=== PATIENT | male | born 1965 | race Caucasian/White ===

== ENCOUNTER 2020-05-13 00:48 | Inpatient (IN) | payer OTHER ==
[~2020-05-13] VITALS: Ht 172 cm; Wt 66.5 kg
[2020-05-13] MEDS ORDERED: NITROGLYCERIN 0.4 MG SL TABS BTL 25'S SL ONE (00:51)
[2020-05-13] MEDS ORDERED: ASPIRIN 81 MG CHEW (CHILDREN'S ASA) ONE (00:51)
[2020-05-13] MEDS ORDERED: morphine INJ 10 MG/ML 1ML (SYR OR VIAL) ONE (00:55)
[2020-05-13] MEDS ORDERED: NS IV 500 ML 500 ML ONE (00:55)
[2020-05-13] MEDS ORDERED: HEParin 1000 UNIT/ML (10ML VIAL) FOR BOLUS ONE ×2 (00:55→01:28)
[2020-05-13] MEDS ORDERED: TICAGRELOR 90 MG TABLET (BRILINTA) PO STA (00:57)
[2020-05-13] MEDS ORDERED: NITROGLYCERIN 0.4 MG SL TABS BTL 25'S SL PRN (01:00)
[2020-05-13] MEDS ORDERED: HEParin 1000 UNIT/ML (10ML VIAL) FOR BOLUS IV SCH (01:00)
[2020-05-13] MEDS ORDERED: ASPIRIN 81 MG CHEW (CHILDREN'S ASA) PO ONE (01:00)
[2020-05-13] MEDS ORDERED: morphine INJ 10 MG/ML 1ML (SYR OR VIAL) IVP STA ×2 (01:01→01:21)
--- NOTE | 2020-05-13 01:05 | ED Chest Pain ---
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 DENIES NAUSEA. Nursing Sepsis Screen: No Definite Risk Source: patient Exam Limitations: no limitations History of Present Illness Date Seen by Provider: May 13, 2020 Time Seen by Provider: 00:50 Initial Comments The patient arrives ER by private conveyance from home with chief complaint of 30 minutes prior to arrival he started having some severe 8 out of 10 chest pain in his left chest radiating to his left arm. He is sweating. He denies a history of coronary disease, hypertension, hyperlipidemia, diabetes. He still smokes 1- 1/2 pack cigarettes per day. He is known to Dr. Girard. He took some ibuprofen when the pain started and it did not help. He has not taken any aspirin. No significant primary family history. Allergies and Home Medications Allergies Coded Allergies: No Known Drug Allergies (Unverified , 05/13/20) Patient Home Medication List Home Medication List Reviewed: Yes Review of Systems Review of Systems Constitutional: No chills; diaphoresis; No fever, No malaise EENTM: No Blurred Vision, No Double Vision Respiratory: Denies Cough, Denies Orthopnea Cardiovascular: See HPI, Chest Pain; Denies Edema, Denies Irregular Heart Rate, Denies Lightheadedness Gastrointestinal: Denies Abdominal Pain, Denies Constipated, Denies Diarrhea, Denies Nausea Genitourinary: Denies Burning, Denies Discharge Musculoskeletal: No back pain, No joint pain All Other Systems Reviewed Negative Unless Noted: Yes Past Pntljgh-Pdelvl-Zavwnf Hx Patient Social History Alcohol Use: Denies Use Smoking Status: Current Everyday Smoker Type Used: Cigarettes Recent Infectious Disease Expo: No Physical Exam Vital Signs Vital Signs - First Documented 05/13/20 00:52 Temp 36.9 Pulse 70 Resp 16 B/P (MAP) 126/93 (104) O2 Delivery Room Air Capillary Refill : Less Than 3 Seconds Height, Weight, BMI Height: '" Weight: lbs. oz. kg; 22.00 BMI Method: General Appearance: Anxious, Moderate Distress HEENT: PERRL/EOMI, Pharynx Normal, Moist Mucous Membranes Neck: Full Range of Motion, Normal Inspection Respiratory: Lungs Clear, Normal Breath Sounds, No Accessory Muscle Use, No Respiratory Distress Cardiovascular: Regular Rate, Rhythm, No Edema, No Gallop, No Murmur, Normal Peripheral Pulses Gastrointestinal: Normal Bowel Sounds, Non Tender, Soft Extremity: Normal Capillary Refill, Normal Inspection, No Pedal Edema Neurologic/Psychiatric: Alert, Oriented x3 Skin: Normal Color, Warm/Dry Progress/Results/Core Measures Results/Orders Lab Results Laboratory Tests Test 05/13/20 01:04 Range/Units White Blood Count 16.0 H 4.3-11.0 10^3/uL Red Blood Count 4.77 4.30-5.52 10^6/uL Hemoglobin 14.7 13.3-17.7 g/dL Hematocrit 44 40-54 % Mean Corpuscular Volume 93 80-99 fL Mean Corpuscular Hemoglobin 31 25-34 pg Mean Corpuscular Hemoglobin Concent 33 32-36 g/dL Red Cell Distribution Width 14.0 10.0-14.5 % Platelet Count 222 130-400 10^3/uL Mean Platelet Volume 10.9 9.0-12.2 fL Immature Granulocyte % (Auto) 0 % Neutrophils (%) (Auto) 51 42-75 % Lymphocytes (%) (Auto) 38 12-44 % Monocytes (%) (Auto) 7 0-12 % Eosinophils (%) (Auto) 4 0-10 % Basophils (%) (Auto) 1 0-10 % Neutrophils # (Auto) 8.1 H 1.8-7.8 10^3/uL Lymphocytes # (Auto) 6.0 H 1.0-4.0 10^3/uL Monocytes # (Auto) 1.1 H 0.0-1.0 10^3/uL Eosinophils # (Auto) 0.6 H 0.0-0.3 10^3/uL Basophils # (Auto) 0.1 0.0-0.1 10^3/uL Immature Granulocyte # (Auto) 0.1 0.0-0.1 10^3/uL Prothrombin Time 13.2 12.2-14.7 SEC INR Comment 1.0 0.8-1.4 Activated Partial Thromboplast Time 33 24-35 SEC Sodium Level 140 135-145 MMOL/L Potassium Level 4.0 3.6-5.0 MMOL/L Chloride Level 108 H 98-107 MMOL/L Carbon Dioxide Level 19 L 21-32 MMOL/L Anion Gap 13 5-14 MMOL/L Blood Urea Nitrogen 21 H 7-18 MG/DL Creatinine 0.91 0.60-1.30 MG/DL Estimat Glomerular Filtration Rate > 60 BUN/Creatinine Ratio 23 Glucose Level 114 H 70-105 MG/DL Calcium Level 9.3 8.5-10.1 MG/DL Corrected Calcium 9.2 8.5-10.1 MG/DL Magnesium Level 2.0 1.6-2.4 MG/DL Total Bilirubin 0.2 0.1-1.0 MG/DL Aspartate Amino Transf (AST/SGOT) 21 5-34 U/L Alanine Aminotransferase (ALT/SGPT) 20 0-55 U/L Alkaline Phosphatase 80 40-136 U/L Myoglobin 55.8 10.0-92.0 NG/ML Troponin I 0.039 H <0.028 NG/ML Total Protein 7.3 6.4-8.2 GM/DL Albumin 4.1 3.2-4.5 GM/DL My Orders Orders - NICK NEVAREZ Continuous Ekg Monitoring (05/13/20 00:50) Ekg Tracing (05/13/20 00:50) Aspirin Chewable Tablet (Baby Aspirin Ch (05/13/20 00:51) Nitroglycerin 0.4 Mg Btl 25's (Nitrostat (05/13/20 00:51) Cbc With Automated Diff (05/13/20 00:57) Magnesium (05/13/20 00:57) Chest 1 View, Ap/Pa Only (05/13/20 00:57) Comprehensive Metabolic Panel (05/13/20 00:57) Myoglobin Serum (05/13/20 00:57) Protime With Inr (05/13/20 00:57) Partial Thromboplastin Time (05/13/20 00:57) O2 (05/13/20 00:57) Lipid Panel (05/14/20 06:00) Ed Iv/Invasive Line Start (05/13/20 00:57) Nitroglycerin 0.4 Mg Btl 25's (Nitrostat (05/13/20 01:00) Ticagrelor Tablet (Brilinta Tablet) (05/13/20 00:57) Aspirin Chewable Tablet (Baby Aspirin Ch (05/13/20 01:00) Heparin (Bolus Per Protocol) (Heparin (B (05/13/20 01:00) Ed Iv/Invasive Line Start (05/13/20 01:01) Ns Iv 500 Ml (Sodium Chloride 0.9%) (05/13/20 01:15) Morphine Injection (Morphine Injection (05/13/20 01:01) Heparin (Bolus Per Protocol) (Heparin (B (05/13/20 00:55) Morphine Injection (Morphine Injection (05/13/20 00:55) Ns Iv 500 Ml (Sodium Chloride 0.9%) (05/13/20 00:55) Troponin I (05/13/20 00:57) Manual Differential (05/13/20 01:04) Medications Given in ED Current Medications Medications Dose Ordered Sig/Jovana Route Start Time Stop Time Status Last Admin Dose Admin Aspirin 324 mg ONCE ONCE PO 05/13/20 01:00 05/13/20 01:02 DC 05/13/20 01:12 324 MG Vital Signs/I&O 05/13/20 00:52 Temp 36.9 Pulse 70 Resp 16 B/P (MAP) 126/93 (104) O2 Delivery Room Air Blood Pressure Mean: 104 Progress Progress Note : Time: 01:02 Progress Note Aspirin, Brilinta, 4000 units heparin IV and 500 of saline. Instead of nitroglycerin since his initial blood pressure is 120 systolic were going to give him 2 mg of morphine. We have called Dr. 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 Initial ECG Impression Date: May 13, 2020 Initial ECG Impression Time: 00:54 Initial ECG Rate: 65 Initial ECG Rhythm: Normal Sinus Initial ECG Intervals: Normal Initial ECG Impression: Acute OR Comment Acute ST elevation greater than 2 boxes in the anterior leads. Diagnostic Imaging Diagonstic Imaging: Xray Plain Films/CT/US/NM/MRI: chest Comments No acute cardiopulmonary processes on 1 view chest x-ray Reviewed: Reviewed by Me Departure Communication (Admissions) Time/Spoke to Admitting Phy: 00:55 Discussed the case with Dr. Rojas, cardiology and he agrees to take the patient to [employer] [facility]. Time/Spoke to Consulting Phy: 01:50 Dr. Melton agrees to consult for medicine on the case. Impression Primary Impression: STEMI (ST elevation myocardial infarction) Qualified Codes: I21.3 - ST elevation (STEMI) myocardial infarction of unspecified site Disposition: ADMITTED INPATIENT Condition: Critical Admissions Decision to Admit Reason: Admit from ER (General) Decision to Admit/Date: May 13, 2020 Time/Decision to Admit Time: 00:55 Departure-Patient Inst. Referrals: MACIEL GIRARD DO (PCP) Primary Care Physician NICK NEVAREZ May 13, 2020 01:05
[2020-05-13 01:12] LABS: BASOPHILS # (AUTO) 0.1 10^3/uL (0.0-0.1); BASOPHILS % (AUTO) 1 % (0-10); EOSINOPHILS # (AUTO) 0.6 10^3/uL (0.0-0.3); EOSINOPHILS % (AUTO) 4 % (0-10); HEMATOCRIT 44 % (40-54); HEMOGLOBIN 14.7 g/dL (13.3-17.7); LYMPHOCYTES % (AUTO) 38 % (12-44); MEAN CORPUSCULAR HEMOGLOBIN 31 pg (25-34); MEAN CORPUSCULAR HGB CONC 33 g/dL (32-36); MEAN CORPUSCULAR VOLUME 93 fL (80-99); MEAN PLATELET VOLUME 10.9 fL (9.0-12.2); MONOCYTES # (AUTO) 1.1 10^3/uL (0.0-1.0); MONOCYTES % (AUTO) 7 % (0-12); NEUTROPHILS # (AUTO) 8.1 10^3/uL (1.8-7.8); NEUTROPHILS % (AUTO) 51 % (42-75); PLATELET COUNT 222 10^3/uL (130-400)
[2020-05-13] MEDS ORDERED: NS IV 500 ML 500 ML IV ONE (01:15)
[2020-05-13 01:26] LABS: ALBUMIN 4.1 GM/DL (3.2-4.5); CHLORIDE 108 MMOL/L (98-107); PROTHROMBIN TIME PATIENT 13.2 SEC (12.2-14.7); SODIUM 140 MMOL/L (135-145)
[2020-05-13 01:27] LABS: CALCIUM 9.3 MG/DL (8.5-10.1)
[2020-05-13] MEDS ORDERED: MIDAZOLAM 5 MG/5 ML (VERSED) VIAL ONE ×2 (01:27→01:35)
[2020-05-13] MEDS ORDERED: LIDOCAINE 1% INJ 20 ML 20 ML VIAL ONE (01:27)
[2020-05-13] MEDS ORDERED: ATROPINE INJECTION 1 MG/10 ML SYR (ABBOTT) ONE (01:27)
[2020-05-13] MEDS ORDERED: fentaNYL INJ 100 MCG/2 ML AMP ONE ×2 (01:27→01:35)
[2020-05-13 01:28] LABS: GLUCOSE 114 MG/DL (70-105); TOTAL PROTEIN 7.3 GM/DL (6.4-8.2)
[2020-05-13] MEDS ORDERED: NITRO DRIP 25000 MCG/D5W 250 ML IV ONE ×2 (01:28→01:45)
[2020-05-13] MEDS ORDERED: NS IV 1000 ML 1,000 ML ONE ×2 (01:28→02:31)
[2020-05-13] MEDS ORDERED: HEParin (CATH LAB) 2,000 ML IV ONE (01:28)
[2020-05-13 01:29] LABS: CARBON DIOXIDE 19 MMOL/L (21-32)
[2020-05-13 01:30] LABS: BILIRUBIN,TOTAL 0.2 MG/DL (0.1-1.0)
[2020-05-13 01:32] LABS: ALKALINE PHOSPHATASE 80 U/L (40-136); CREATININE SERUM 0.91 MG/DL (0.60-1.30); GFR ESTIMATED > 60
[2020-05-13 01:33] LABS: BUN/CREATININE RATIO 23
[2020-05-13 01:35] LABS: ALANINE AMINOTRANSFERASE 20 U/L (0-55)
[2020-05-13 01:42] VITALS: BP 124/101
[2020-05-13] MEDS ORDERED: NS (IVPB) 0 ML ONE (02:07)
[2020-05-13] MEDS ORDERED: niCARdipine 25 MG/10 ML (CARDENE) AMP IV ONE (02:07)
[2020-05-13] MEDS ORDERED: EPTIFIBATIDE DRIP 100 ML IV ONE (02:13)
--- NOTE | 2020-05-13 02:29 | History & Physicial-Cardiolgy ---
HPI-Cardiology Cardiology Consultation: Date of Consultation 05/13/20 Date of Admission Attending Physician Dinorah Flaherty MD Admitting Physician Hayden Peña DO Consulting Physician Dinorah FLAHERTY MD HPI: Time Seen by a Provider: 02:27 Chief Complaint: Chest pain 55 year old smoker with chest pain x 30 minutes with nausea and sweating. severe, 10/10. no radiation. Review of Systems-Cardiology Review of Systems Constitutional: As described under HPI; No As described under HPI, No no symptoms reported, No chills, No fever, No lightheadedness Eyes: No As described under HPI, No no symptoms reported, No blindness, No blurred vision, No contact lenses, No drainage, No decreased acuity, No foreign body sensation, No pain, No vision change Ears/Nose/Throat: No As described under HPI, No no symptoms reported, No chronic hearing loss, No ear discharge, No ear pain, No nasal drainage, No ulcerations Respiratory: No no symptoms reported; As described under HPI; No As described under HPI, No cough, No orthopnea, No shortness of breath, No SOB with excertion Cardiovascular: No no symptoms reported; As described under HPI; No As described under HPI; chest pain; No edema, No irregular heart rate, No lightheadedness, No palpitations Gastrointestinal: No no symptoms reported, No As described under HPI, No abdomen distended, No abdominal pain, No blood streaked bowels, No constipation, No diarrhea, No nausea, No vomiting, No stool coloration changes Genitourinary: No As described under HPI, No burning, No dysuria, No discharge, No frequency, No flank pain, No hematuria, No urgency Skin: No rash, No skin related problems, No ulcerations Psychiatric/Neurological: No anxiety, No depression, No seizure, No focal weakness, No syncope Hematologic: No bleeding abnormalities All Other Systems Reviewed Negative Unless Noted: Yes YKF-Hremac-Zhvuli Hx Patient Social History Smoking Status: Current Everyday Smoker Past Medical History PMH As described under Assessment. Allergies and Home Medications Allergies Coded Allergies: No Known Drug Allergies (Unverified , 05/13/20) Patient Home Medication List Home Medication List Reviewed: Yes Physical Exam-Cardiology Physical Exam Vital Signs/I&O 05/13/20 05/13/20 05/13/20 00:52 01:33 01:42 Temp 36.9 36.9 Pulse 70 64 Resp 16 16 B/P (MAP) 126/93 (104) 124/101 (104) Pulse Ox 100 O2 Delivery Room Air Nasal Cannula Nasal Cannula O2 Flow Rate 2.00 2.00 Capillary Refill : Less Than 3 Seconds Constitutional: appears stated age, AAO x 3; No apparent distress; well- developed, well-nourished HEENT: PERRL; No discharge; hearing is well preserved, oral hygience is good; No ulceration, No xanthelasmas are seen Neck: No carotid bruit; carotid pulses are 2 + bilaterally Respiratory: chest is bilaterally symmetric, lungs clear to auscultation Cardiovascular: regular rate-rhythm, S1 and S2 Gastrointestinal: soft, audible bowel sounds; No spleenomegaly Rectal: deferred Extremities: normal range of motion, non-tender, normal inspection; No clubbing, No cyanosis; no lower extremity edema bilateral; No significant edema Neurologic/Psychiatric: no motor/sensory deficits, alert, normal mood/affect, oriented x 3, power is 5/5 both on sides Skin: normal color; No rash, No ulcerations Data Review Labs Laboratory Tests 05/13/20 01:04: White Blood Count 16.0H, Red Blood Count 4.77, Hemoglobin 14.7, Hematocrit 44, Mean Corpuscular Volume 93, Mean Corpuscular Hemoglobin 31, Mean Corpuscular Hemoglobin Concent 33, Red Cell Distribution Width 14.0, Platelet Count 222, Mean Platelet Volume 10.9, Immature Granulocyte % (Auto) 0, Neutrophils (%) (Auto) 51, Lymphocytes (%) (Auto) 38, Monocytes (%) (Auto) 7, Eosinophils (%) (Auto) 4, Basophils (%) (Auto) 1, Neutrophils # (Auto) 8.1H, Lymphocytes # (Auto) 6.0H, Monocytes # (Auto) 1.1H, Eosinophils # (Auto) 0.6H, Basophils # (Auto) 0.1, Immature Granulocyte # (Auto) 0.1, Prothrombin Time 13.2, INR Comment 1.0, Activated Partial Thromboplast Time 33, Sodium Level 140, Potassium Level 4.0, Chloride Level 108H, Carbon Dioxide Level 19L, Anion Gap 13, Blood Urea Nitrogen 21H, Creatinine 0.91, Estimat Glomerular Filtration Rate > 60, BUN/Creatinine Ratio 23, Glucose Level 114H, Calcium Level 9.3, Corrected Calcium 9.2, Magnesium Level 2.0, Total Bilirubin 0.2, Aspartate Amino Transf (AST/SGOT) 21, Alanine Aminotransferase (ALT/SGPT) 20, Alkaline Phosphatase 80, Myoglobin 55.8, Troponin I 0.039H, Total Protein 7.3, Albumin 4.1 05/13/20 01:26: Coronavirus 2019 ([facility]) Negative ECG Impression ECG Initial ECG Rhythm: Normal Sinus Initial ECG Impression: Acute NV A/P-Cardiology Assessment/Admission Diagnosis Acute Anterior STEMI, Active smoking Admission Status: Inpatient Order (span 2 midnights) Reason for Inpatient Admission: NV Plan AMI - DAPT, heparin, primary PCI to the LAD with MISHA. Integrillin x 12 hours. Echo in am. Active smoking - strongly recommended to quit. Clinical Quality Measures AMI/AHF: ASA po Prior to arrival: Dinorah Hein MD May 13, 2020 02:29
[2020-05-13] MEDS ORDERED: PATIENT MAY USE OWN MEDS, ALL PO SCH (02:30)
--- NOTE | 2020-05-13 02:37 | Coronary Angiography & PCI ---
Coronary Angiography & PCI DATE OF PROCEDURE: 05/13/20 INDICATION: Acute Anterior STEMI PREOPERATIVE DIAGNOSIS: Acute Anterior STEMI POSTOPERATIVE DIAGNOSIS: Occluded pLAD, MISHA done HISTORY: 55 year old smoker with chest pain and anterior ST elevation injury pattern. Emergent Primary PCI is recommended. PROCEDURES PERFORMED: 1.Coronary angiography. 2.Left heart catheterization. 3.PCI to the pLAD with MISHA COMPLICATIONS: None. SPECIMENS: None. ESTIMATED BLOOD LOSS: 10 mL ANESTHESIA: Conscious sedation ANTICOAGULATION: IV heparin CONTRAST: 106 ml FLUOROSCOPY: 5.7 minutes. FLOUROSCOPY DOSE: 678 mgy. PROCEDURE DETAILS: The patient is a 55 male and was brought to the cath lab technologist after emergent informed consent was taken. All the risks and complications were explained in detail; this included the risk of bleeding, vascular damage, stroke, [place] and even . The patient was draped and prepped in the usual sterile fashion. Access was gained in the right femoral artery with a 6 [place] sheath. Coronary angiography and left heart catheterization was performed with the EBU, JR 4 catheter. FINDINGS: 1.Left main: Patent 2.LAD: total proximal occlusion. 3.Left circumflex artery: mild diffuse disease. 4.RCA: patent 5.Left heart catheterization: LV 108/14mmhg, LVEDP 26mmhg, Ao pressure 110/75mmhg. No gradient across the aortic valve. Moderate LV systolic d ysfunction with anterior akinesis. RECOMMENDATIONS: Primary PCI to the pLAD is recommended. INTERVENTION DETAILS: EBU 3.5 guide, changed to EBU 4 guide, IV heparin for anticoagulation, whisper guidewire. Patient was given brilinta bolus in the ER. The lesion was crossed with the whisper wire and initial balloon dilatation done with 2.0x12 balloon and recanalization done. significant clot burden noted which involved the second diagonal artery as well. Xience Radha 3x23 deployed at 18 atms for 13 seconds. Excellent results with LOLY III flow. plaque shift in the first septal stable hand noted. Due to significant clot burden, Integrillin bolus and infusion was started. Patient tolerated the procedure well and did not have any complication. CONCLUSIONS: 1. Acute Anterior STEMI - primary pci to the pLAD done with MISHA. 2. DAPT, IV integrillin. 3. Aggressive secondary prevention measures. 4. Smoking cessation. 5. Echo in am M. Arcadio Rojas MD, FACP, FACC, FSCAI Interventional Cardiology Dinorah ROJAS MD May 13, 2020 02:37
[2020-05-13] MEDS: NS IV 1000 ML 1,000 ML IV SCH ×2 (03:04→12:54)
[2020-05-13] MEDS ORDERED: HYDROcodone/APAP 5 MG/325 MG (LORTAB) TAB ONE (03:30)
[2020-05-13] MEDS: HYDROcodone/APAP 5 MG/325 MG (LORTAB) TAB PO PRN ×2 (03:38→22:17)
[2020-05-13 03:51] LABS: BASOPHILS % (MANUAL) 1 %; EOSINOPHILS % (MANUAL) 5 %; LYMPHOCYTES % (MANUAL) 38 %; MONOCYTES % (MANUAL) 8 %; NEUTROPHILS % (MANUAL) 42 %
[2020-05-13 03:52] LABS: ATYPICAL LYMPHOCYTES 6 %; RBC MORPH NORMAL
--- NOTE | 2020-05-13 07:06 | Diagnostic Imaging Report ---
EXAMINATION: Chest radiograph, portable AP view. DATE: 05/13/2020 1:14 AM INDICATION: 55-year-old male, chest pain. COMPARISON: None. FINDINGS: Heart size and mediastinal contours are unremarkable. There is no identified pneumothorax. There is no large pleural effusion. There is no definite focal airspace consolidation. IMPRESSION: No radiographically apparent acute cardiopulmonary abnormality. Dictated by: Dictated on workstation # [id number]
[2020-05-13] MEDS: ASPIRIN E.C. 81 MG (ECOTRIN) TAB PO SCH (08:39)
[2020-05-13] MEDS: TICAGRELOR 90 MG TABLET (BRILINTA) PO SCH ×2 (08:39→21:46)
--- NOTE | 2020-05-13 09:04 | Consultation - Hospitalist ---
HPI History of Present Illness: HPI/Chief Complaint Pt is a 55yoCM with no known past medical history presented to the ER due to chest pain. He states he had just finished smoking a cigarette and was waiting for dinner to finish around midnight when he developed sudden onset central chest pain that radiated to his arm. He states he waited a little hoping it would get better but when he started to get SOB and diaphoretic he decided to seek evaluation. He was found to have a STEMI on arrival and was taken emergently to the equipment operator/laborer/supervisor where PCI with MISHA was performed to the pLAD. He reports feeling much better this morning and has no residual chest pain. Date Seen 05/13/20 Attending Physician Dinorah Rojas MD PCP Hayden Peña DO Referring Physician Date of Admission May 13, 2020 at 01:23 Home Medications & Allergies Home Medications Reviewed patient Home Medication Reconciliation performed by pharmacy medication reconciliations medical technician assistant and/or nursing. Patients Allergies have been reviewed. Allergies Allergies Coded Allergies No Known Drug Allergies (Unverified05/13/20) Past Ctvvsii-Ttbszn-Dsdbea Hx Past Med/Social Hx: Reviewed Nursing Past Med/Soc Hx Patient Social History Alcohol Use: Denies Use Recreational Drug Use: Yes Drug of Choice: MARIJUANA Smoking Status: Current Everyday Smoker Type Used: Cigarettes Recent Foreign Travel: No Contact w/other who traveled: No Recent Infectious Disease Expo: No Past Medical History History of Blood Disorders: No Family History Reviewed Nursing Family Hx Review of Systems Constitutional: No chills; diaphoresis; No fever, No malaise EENTM: no symptoms reported Respiratory: No cough, No dyspnea on exertion, No phlegm; short of breath Cardiovascular: see HPI, chest pain; No edema, No syncope Gastrointestinal: No abdominal pain, No constipation, No diarrhea, No nausea, No vomiting Genitourinary: No dysuria, No frequency Musculoskeletal: no symptoms reported Skin: no symptoms reported Psychiatric/Neurological: No Symptoms Reported Physical Exam Physical Exam Vital Signs Vital Signs - First Documented 05/13/20 05/13/20 05/13/20 00:52 01:33 01:42 Temp 36.9 Pulse 70 Resp 16 B/P (MAP) 126/93 (104) Pulse Ox 100 O2 Delivery Room Air O2 Flow Rate 2.00 Capillary Refill : Less Than 3 Seconds Height, Weight, BMI Height: '" Weight: lbs. oz. kg; 22.61 BMI Method: General Appearance: No Apparent Distress, WD/WN, Thin HEENT: PERRL/EOMI, Moist Mucous Membranes Neck: Normal Inspection, Supple Respiratory: Lungs Clear, No Accessory Muscle Use, No Respiratory Distress Cardiovascular: Regular Rate, Rhythm, No Edema, No Gallop, No Murmur, Normal Peripheral Pulses Gastrointestinal: Normal Bowel Sounds, Non Tender, Soft Extremity: Normal Inspection, No Pedal Edema; No Swelling Neurologic/Psychiatric: Alert, Oriented x3, Normal Mood/Affect Skin: Normal Color, Warm/Dry Results Results/Procedures Labs Laboratory Tests 05/13/20 01:04 Patient resulted labs reviewed. Imaging: Reviewed Imaging Report Imaging [facility], [place] NAME: [facility]UR[facility] VARGAS [facility] REC#: [id number] PT STATUS: ADM IN : 1965 PHYSICIAN: NICK NEVAREZ MD ADMIT DATE: 05/13/20/ICU Draft Date of Exam:05/13/20 CHEST 1 VIEW, AP/PA ONLY EXAMINATION: Chest radiograph, portable AP view. DATE: 05/13/2020 1:14 AM INDICATION: 55-year-old male, chest pain. COMPARISON: None. FINDINGS: Heart size and mediastinal contours are unremarkable. There is no identified pneumothorax. There is no large pleural effusion. There is no definite focal airspace consolidation. IMPRESSION: No radiographically apparent acute cardiopulmonary abnormality. Dictated on workstation # [id number] Dict: 05/13/20 [id number] Trans: 05/13/20 [id number] [facility] [id number] Interpreted by: SARAY GEORGES MD Electronically signed by: Assessment/Plan Assessment and Plan Assess & Plan/Chief Complaint STEMI PCI to proximal LAD Management per primary Continue on integrelin gtt per cardiology ASA and Brilinta ordered Continue statin Echo ordered Leukocytosis No evidence of infection, no fever Trend Likely reactive Tobacco abuse Recommend cessation and risks of further heart disease if he continues, expresses understanding Patient reports plan to quit cold turkey Encouraged follow up with PCP if he needs further help Diagnosis/Problems Diagnosis/Problems (1) Acute ST elevation myocardial infarction (STEMI) of anterior wall (2) STEMI (ST elevation myocardial infarction) Status: Acute Qualifiers: Involved coronary artery: unspecified coronary artery Qualified Codes: I21.3 - ST elevation (STEMI) myocardial infarction of unspecified site (3) Tobacco abuse Clinical Quality Measures AMI/AHF: ASA po Prior to arrival: TIFFANI Thorne MD May 13, 2020 09:04
--- NOTE | 2020-05-13 18:10 | Cardiology Progress Note ---
Cardiology SOAP Progress Note Subjective: No further chest pain Objective: I&O/Vital Signs 05/13/20 05/13/20 05/13/20 05/13/20 07:00 07:00 07:25 08:00 Pulse 72 80 74 Resp 17 14 B/P (MAP) 113/84 (94) 115/84 (94) Pulse Ox 95 96 96 O2 Delivery Room Air Room Air Room Air 05/13/20 05/13/20 05/13/20 05/13/20 08:43 09:00 10:00 11:00 Temp 36.6 Pulse 53 74 71 Resp 28 12 24 B/P (MAP) 109/46 (67) 121/90 (100) 122/86 (98) Pulse Ox 90 97 96 O2 Delivery Room Air Room Air Room Air 05/13/20 05/13/20 05/13/20 05/13/20 12:00 12:00 13:00 13:00 Pulse 77 94 72 Resp 18 19 B/P (MAP) 108/71 (83) 109/81 (90) Pulse Ox 97 97 98 O2 Delivery Room Air Room Air Room Air 05/13/20 05/13/20 05/13/20 05/13/20 14:00 15:00 15:46 16:00 Temp 36.8 Pulse 80 85 67 Resp 11 11 11 B/P (MAP) 106/83 (94) 115/94 (101) 112/73 (86) Pulse Ox 98 98 O2 Delivery Room Air Room Air Room Air 05/13/20 05/13/20 16:00 17:00 Pulse 66 Resp 21 B/P (MAP) 109/74 (86) Pulse Ox 97 97 O2 Delivery Room Air Room Air Constitutional: appears stated age, AAO x 3; No apparent distress; well- developed, well-nourished Respiratory: chest is bilaterally symmetric, lungs clear to auscultation Cardiovascular: regular rate-rhythm, S1 and S2 Gastrointestional: soft, audible bowel sounds; No spleenomegaly Extremities: normal range of motion, non-tender, normal inspection; No clubbing, No cyanosis; no lower extremity edema bilateral; No significant edema Neurologic/Psychiatric: no motor/sensory deficits, alert, normal mood/affect, oriented x 3, power is 5/5 both on sides Skin: normal color; No rash, No ulcerations Results/Procedures: Labs Laboratory Tests 05/13/20 01:04: White Blood Count 16.0H, Red Blood Count 4.77, Hemoglobin 14.7, Hematocrit 44, Mean Corpuscular Volume 93, Mean Corpuscular Hemoglobin 31, Mean Corpuscular Hemoglobin Concent 33, Red Cell Distribution Width 14.0, Platelet Count 222, Mean Platelet Volume 10.9, Immature Granulocyte % (Auto) 0, Neutrophils (%) (Aut o) 51, Lymphocytes (%) (Auto) 38, Monocytes (%) (Auto) 7, Eosinophils (%) (Auto) 4, Basophils (%) (Auto) 1, Neutrophils # (Auto) 8.1H, Lymphocytes # (Auto) 6.0H, Monocytes # (Auto) 1.1H, Eosinophils # (Auto) 0.6H, Basophils # (Auto) 0.1, Immature Granulocyte # (Auto) 0.1, Neutrophils % (Manual) 42, Lymphocytes % (Manual) 38, Monocytes % (Manual) 8, Eosinophils % (Manual) 5, Basophils % (Manual) 1, Atypical Lymphocytes 6, Blood Morphology Comment NORMAL, Prothrombin Time 13.2, INR Comment 1.0, Activated Partial Thromboplast Time 33, Sodium Level 140, Potassium Level 4.0, Chloride Level 108H, Carbon Dioxide Level 19L, Anion Gap 13, Blood Urea Nitrogen 21H, Creatinine 0.91, Estimat Glomerular Filtration Rate > 60, BUN/Creatinine Ratio 23, Glucose Level 114H, Calcium Level 9.3, Corrected Calcium 9.2, Magnesium Level 2.0, Total Bilirubin 0.2, Aspartate Amino Transf (AST/SGOT) 21, Alanine Aminotransferase (ALT/SGPT) 20, Alkaline Phosphatase 80, Myoglobin 55.8, Troponin I 0.039H, Total Protein 7.3, Albumin 4.1 05/13/20 01:26: Coronavirus 2019 ([facility]) Negative A/P: Assessment/Dx: Acute Anterior STEMI, Active smoking Plan: AMI - DAPT, heparin, primary PCI to the LAD with MISHA. Integrillin x 12 hours. Active smoking - strongly recommended to quit. Stunned myocardium vs ischemic cardiomyopathy with LVEF 30-35% on Echo with anterior akinesis. Will likely require life vest for primary prevention of sudden cardiac . Dr Deleon to take over care in the morning. Thank you for your consultation. Please call me if you have any questions. Alyson Rojas MD, FACP, FACC, FSCAI, FHRS, CCDS Interventional Cardiology Cardiac Electrophysiology Vascular Medicine and Endovascular Interventions Clinical Quality Measures AMI/AHF: ASA po Prior to arrival: Dinorah Hein MD May 13, 2020 18:10
[2020-05-14] MEDS: NS IV 1000 ML 1,000 ML IV SCH ×3 (00:58→18:30)
[2020-05-14] MEDS: HYDROcodone/APAP 5 MG/325 MG (LORTAB) TAB PO PRN ×3 (02:03→19:41)
[2020-05-14 03:31] LABS: BASOPHILS # (AUTO) 0.1 10^3/uL (0.0-0.1); BASOPHILS % (AUTO) 0 % (0-10); EOSINOPHILS # (AUTO) 0.1 10^3/uL (0.0-0.3); EOSINOPHILS % (AUTO) 1 % (0-10); HEMATOCRIT 39 % (40-54); HEMOGLOBIN 12.8 g/dL (13.3-17.7); LYMPHOCYTES # (AUTO) 3.1 10^3/uL (1.0-4.0); LYMPHOCYTES % (AUTO) 17 % (12-44); MEAN CORPUSCULAR HEMOGLOBIN 31 pg (25-34); MEAN CORPUSCULAR HGB CONC 33 g/dL (32-36); MEAN CORPUSCULAR VOLUME 94 fL (80-99); MEAN PLATELET VOLUME 11.5 fL (9.0-12.2); MONOCYTES # (AUTO) 1.7 10^3/uL (0.0-1.0); MONOCYTES % (AUTO) 9 % (0-12); NEUTROPHILS # (AUTO) 13.5 10^3/uL (1.8-7.8); NEUTROPHILS % (AUTO) 73 % (42-75); PLATELET COUNT 176 10^3/uL (130-400); WHITE BLOOD COUNT 18.5 10^3/uL (4.3-11.0)
[2020-05-14 03:46] LABS: CHLORIDE 109 MMOL/L (98-107); POTASSIUM 4.2 MMOL/L (3.6-5.0); SODIUM 138 MMOL/L (135-145)
[2020-05-14 03:47] LABS: CALCIUM 8.7 MG/DL (8.5-10.1)
[2020-05-14 03:48] LABS: GLUCOSE 116 MG/DL (70-105); TRIGLYCERIDES 138 MG/DL (<150); VLDL CHOLESTEROL 28 MG/DL (5-40)
[2020-05-14 03:49] LABS: CARBON DIOXIDE 20 MMOL/L (21-32)
[2020-05-14 03:52] LABS: CREATININE SERUM 0.71 MG/DL (0.60-1.30); GFR ESTIMATED > 60; PHOSPHORUS 2.1 MG/DL (2.3-4.7)
[2020-05-14 03:53] LABS: BUN/CREATININE RATIO 14; CHOLESTEROL 174 MG/DL (< 200)
[2020-05-14 03:54] LABS: HDL CHOLESTEROL 35 MG/DL (40-60); MAGNESIUM 1.7 MG/DL (1.6-2.4)
--- NOTE | 2020-05-14 05:14 | Pulmonary Consultation ---
History of Present Illness History of Present Illness Date Seen by Provider: May 14, 2020 Time Seen by Provider: 05:08 Date of Admission Allergies and Home Medications Allergies Coded Allergies: No Known Drug Allergies (Unverified , 05/13/20) Past Mioelxx-Ngejbx-Rbrlzs Hx Past Med/Social Hx: Reviewed Nursing Past Med/Soc Hx Patient Social History Alcohol Use: Denies Use Drug of Choice: MARIJUANA Smoking Status: Current Everyday Smoker Type Used: Cigarettes Recent Infectious Disease Expo: No Substance type: Marijuana Past Medical History Surgeries: Yes (TEETH REMOVAL) Respiratory: No Cardiac: No Neurological: No Genitourinary: No Gastrointestinal: No Musculoskeletal: No Endocrine: No HEENT: No Cancer: No Psychosocial: No Integumentary: No Blood Disorders: No Family Medical History Reviewed Nursing Family Hx Review of Systems Time Seen by Provider: 05:14 Sepsis Event Evaluation Height, Weight, BMI Height: '" Weight: lbs. oz. kg; 22.61 BMI Method: Exam Exam Vital Signs Date Time Temp Pulse Resp B/P (MAP) Pulse Ox O2 Delivery O2 Flow Rate FiO2 05/14/20 04:00 98 Room Air 05/14/20 04:00 60 95/67 (76) 97 Room Air 05/14/20 03:52 37.3 05/14/20 03:00 80 17 99/76 (84) 97 Room Air 05/14/20 02:00 61 15 103/64 (77) 97 Room Air 05/14/20 01:00 70 26 104/69 (87) 97 Room Air 05/14/20 01:00 70 05/14/20 00:00 98 Room Air 05/14/20 00:00 37.6 05/14/20 00:00 71 14 108/81 (91) 98 Room Air 05/13/20 23:00 75 108/79 (87) 98 Room Air 05/13/20 22:00 68 11 96/68 (75) 99 Room Air 05/13/20 21:00 65 15 119/83 (106) 99 Room Air 05/13/20 20:00 69 108/76 (97) 100 Room Air 05/13/20 20:00 98 Room Air 05/13/20 19:28 36.6 05/13/20 19:00 75 05/13/20 19:00 75 11 115/85 (95) 98 Room Air 05/13/20 18:00 69 13 119/90 (100) 99 Room Air 05/13/20 17:00 66 21 109/74 (86) 97 Room Air 05/13/20 16:00 97 Room Air 05/13/20 16:00 67 11 112/73 (86) 98 Room Air 05/13/20 15:46 36.8 05/13/20 15:00 85 11 115/94 (101) 98 Room Air 05/13/20 14:00 80 11 106/83 (94) Room Air 05/13/20 13:00 72 05/13/20 13:00 94 19 109/81 (90) 98 Room Air 05/13/20 12:00 77 18 108/71 (83) 97 Room Air 05/13/20 12:00 97 Room Air 05/13/20 11:00 71 24 122/86 (98) 96 Room Air 05/13/20 10:00 74 12 121/90 (100) 97 Room Air 05/13/20 09:00 53 28 109/46 (67) 90 Room Air 05/13/20 08:43 36.6 05/13/20 08:00 74 14 115/84 (94) 96 Room Air 05/13/20 07:25 96 Room Air 05/13/20 07:00 80 05/13/20 07:00 72 17 113/84 (94) 95 Room Air 05/13/20 06:00 Room Air 05/13/20 06:00 77 16 121/86 (98) 95 Room Air I & O 05/14/20 06:59 Intake Total 3600 ml Output Total 356 ml Balance 3244 ml Height & Weight Height: '" Weight: lbs. oz. kg; 22.61 BMI Method: General Appearance: No Apparent Distress, WD/WN, Thin HEENT: PERRL/EOMI, Moist Mucous Membranes Neck: Normal Inspection, Supple Respiratory: Lungs Clear, No Accessory Muscle Use, No Respiratory Distress Cardiovascular: Regular Rate, Rhythm, No Edema, No Gallop, No Murmur, Normal Peripheral Pulses Capillary Refill: Less Than 3 Seconds Extremity: Normal Inspection, No Pedal Edema; No Swelling Neurologic/Psychiatric: Alert, Oriented x3, Normal Mood/Affect Skin: Normal Color, Warm/Dry Results Lab Laboratory Tests 05/13/20 01:04 05/14/20 02:57 Assessment/Plan Assessment/Plan STEMI Cardiology following PCI to proximal LAD ASA and Brilinta statin Echo Leukocytosis- No fever CXR - no infiltrate -Check UA and BC -Check PCT possibly reactive Tobacco abuse Recommend cessation and risks of further heart disease if he continues, expresses understanding Patient reports plan to quit cold turkey Encouraged follow up with PCP if he needs further help SAROJ FIERRO DO May 14, 2020 05:14
--- NOTE | 2020-05-14 06:02 | Diagnostic Imaging Report ---
INDICATION: Chest pain Portable chest 3:21 AM Heart size and pulmonary vascularity are normal. Lungs are clear. There are no effusions or pneumothoraces. IMPRESSION: Negative chest Dictated by: Dictated on workstation # [id number]
[2020-05-14 07:46] LABS: BILIRUBIN,URINE NEGATIVE (NEGATIVE); CLARITY,URINE CLEAR; COLOR,URINE YELLOW; GLUCOSE, URINE (UA) NEGATIVE (NEGATIVE); KETONES,URINE 1+ (NEGATIVE); LEUKOCYTE ESTERASE ,URINE NEGATIVE (NEGATIVE); NITRITE,URINE NEGATIVE (NEGATIVE); PROTEIN,URINE NEGATIVE (NEGATIVE)
[2020-05-14 07:59] LABS: BACTERIA,URINE FEW /HPF; RBC,URINE 0-2 /HPF
[2020-05-14] MEDS: TICAGRELOR 90 MG TABLET (BRILINTA) PO SCH ×2 (08:06→19:41)
[2020-05-14] MEDS: lisINopril 5 MG (PRINIVIL) TABLET PO SCH (08:06)
[2020-05-14] MEDS: ASPIRIN E.C. 81 MG (ECOTRIN) TAB PO SCH (08:06)
--- NOTE | 2020-05-14 10:12 | Cardiology Progress Note ---
Subjective Date Seen by Provider: May 14, 2020 Time Seen by Provider: 10:09 Subjective/Events-last exam Patient was seen at bedside laying down comfortably, denied any active pain, has bruising in the right groin. No active bleeding Review of Systems General: No Chills, No Night Sweats, No Fatigue, No Malaise, No Appetite, No Other HEENT: No Head Aches, No Visual Changes, No Eye Pain, No Ear Pain, No Dysphasia, No Sinus Congestion, No Post Nasal Drip, No Sore Throat, No Other Pulmonary: No Dyspnea, No Cough, No Pleuritic Chest Pain, No Other Cardiovascular: No: Chest Pain, Palpitations, Orthopnea, Paroxysmal Noc. Dy spnea, Edema, Lt Headedness, Other Focused Exam Lactate Level 05/14/20 05:48: Lactic Acid Level 1.07 Objective-Cardiology Exam Last Set of Vital Signs Vital Signs 05/13/20 05/14/20 05/14/20 05:00 08:00 08:29 Temp 37.1 Pulse 67 Resp 26 B/P (MAP) 100/77 (85) Pulse Ox 97 O2 Delivery Room Air O2 Flow Rate 2.00 Capillary Refill : Less Than 3 Seconds I&O Intake and Output 05/13/20 23:59 Intake Total 4300 ml Output Total 505 ml Balance 3795 ml Intake Oral 1800 ml IV Total 2500 ml Output Urine Total 500 ml Stool Total 5 ml Daily Weight Change No General: Alert, Oriented X3, Cooperative HEENT: Atraumatic, PERRLA Neck: Supple, No JVD, No Thyromegaly Lungs: Clear to Auscultation, Normal Air Movement Heart: Regular Rate, Normal S1, Normal S2, No Murmurs Abdomen: Normal Bowel Sounds, Soft, No Tenderness, No Hepatosplenomegaly, No Masses Extremities: No Clubbing, No Cyanosis, No Edema, Normal Pulses, No Tenderness/Swelling Skin: No Rashes, No Breakdown, No Significant Lesion Neuro: Normal Gait, Normal Speech, Strength at 5/5 X4 Ext, Normal Tone, Sensation Intact Psych/Mental Status: Mental Status NL, Mood NL Results Lab Laboratory Tests 05/14/20 02:57 A/P-Cardiology Admission Diagnosis Acute ST elevation myocardial infarction Coronary artery disease Congestive heart failure Hyperlipidemia Assessment/Plan Acute ST elevation myocardial infarction status post emergency cardiac catheterization and stenting to the LAD using Radha 3 x 23 mm, heavy thrombus burden reported by Dr. Rojas. Stunt myocardium with ejection fraction 30 to 35%. Continue on dual antiplatelet therapy Congestive heart failure, acute left ventricular systolic dysfunction, probably secondary to acute myocardial infarction with ischemic cardiomyopathy, anterior wall akinesis, EF 30 to 35%, continue to maximize medical therapy. Increased risk of sudden , planning to place a LifeVest for primary prevention and maximize medical therapy. Leukocytosis, unknown etiology, no sign of infection, probably reactive. Continue to monitor Status post bleeding in the right groin, small hematoma. Resolved, has large bruising. Continue to monitor Hyperlipidemia started on Lipitor 80 mg daily Clinical Quality Measures AMI/AHF: ASA po Prior to arrival: MARYAM Carlson MD May 14, 2020 10:12
[2020-05-14] MEDS ORDERED: MELA1TAB15 PO (13:16)
[2020-05-14] MEDS ORDERED: LATA7.5D OU (13:16)
[2020-05-14] MEDS ORDERED: IBUP-2473 PO (13:16)
--- NOTE | 2020-05-14 13:39 | Progress Note - Hospitalist ---
Subjective HPI/CC On Admission Date Seen by Provider: May 14, 2020 Time Seen by Provider: 08:30 Pt is a 55yoCM with no known past medical history presented to the ER due to chest pain. He states he had just finished smoking a cigarette and was waiting for dinner to finish around midnight when he developed sudden onset central ches t pain that radiated to his arm. He states he waited a little hoping it would get better but when he started to get SOB and diaphoretic he decided to seek evaluation. He was found to have a STEMI on arrival and was taken emergently to the company laborer where PCI with MISHA was performed to the pLAD. He reports feeling much better this morning and has no residual chest pain. Subjective/Events-last exam He is not having any more chest pain. He is not having any shortness of breath. He has no other complaints or concerns. Focused Exam Lactate Level 05/14/20 05:48: Lactic Acid Level 1.07 Objective Exam Vital Signs Vital Signs Date Time Temp Pulse Resp B/P (MAP) Pulse Ox O2 Delivery O2 Flow Rate FiO2 05/14/20 12:38 65 05/14/20 12:00 20 108/79 (89) 96 Room Air 05/14/20 08:29 37.1 05/13/20 05:00 2.00 Capillary Refill : Less Than 3 Seconds General Appearance: No Apparent Distress, WD/WN Respiratory: Lungs Clear, Normal Breath Sounds, No Respiratory Distress Cardiovascular: Regular Rate, Rhythm, No Edema, No Murmur Gastrointestinal: Normal Bowel Sounds, Non Tender, Soft Extremity: Normal Inspection, Non Tender, No Pedal Edema Neurologic/Psychiatric: Alert, Oriented x3, No Motor/Sensory Deficits, Normal Mood/Affect Skin: Normal Color, Warm/Dry Results/Procedures Lab Laboratory Tests 05/14/20 02:57 Patient resulted labs reviewed. Imaging: Reviewed Imaging Report Assessment/Plan Assessment and Plan Assess & Plan/Chief Complaint STEMI Ischemic cardiomyopathy PCI to proximal LAD Management per primary ASA and Brilinta Continue statin Echo showed EF 30-35% Awaiting LifeVest Leukocytosis No evidence of infection, no fever Trend Likely reactive Tobacco abuse Recommend cessation and risks of further heart disease if he continues, expresses understanding Patient reports plan to quit cold turkey Encouraged follow up with PCP if he needs further help Diagnosis/Problems Diagnosis/Problems (1) STEMI (ST elevation myocardial infarction) Status: Acute Qualifiers: Involved coronary artery: unspecified coronary artery Qualified Codes: I21.3 - ST elevation (STEMI) myocardial infarction of unspecified site (2) Ischemic cardiomyopathy Status: Acute (3) HLD (hyperlipidemia) Status: Acute (4) Leukocytosis Status: Acute (5) Tobacco abuse Status: Chronic Clinical Quality Measures AMI/AHF: ASA po Prior to arrival: NESHA Felix MD May 14, 2020 13:39
[2020-05-15 04:40] LABS: BASOPHILS # (AUTO) 0.1 10^3/uL (0.0-0.1); BASOPHILS % (AUTO) 0 % (0-10); EOSINOPHILS # (AUTO) 0.2 10^3/uL (0.0-0.3); EOSINOPHILS % (AUTO) 1 % (0-10); HEMATOCRIT 38 % (40-54); HEMOGLOBIN 12.7 g/dL (13.3-17.7); LYMPHOCYTES # (AUTO) 2.7 10^3/uL (1.0-4.0); LYMPHOCYTES % (AUTO) 15 % (12-44); MEAN CORPUSCULAR HEMOGLOBIN 31 pg (25-34); MEAN CORPUSCULAR HGB CONC 33 g/dL (32-36); MEAN CORPUSCULAR VOLUME 93 fL (80-99); MEAN PLATELET VOLUME 12.2 fL (9.0-12.2); MONOCYTES % (AUTO) 11 % (0-12); NEUTROPHILS % (AUTO) 72 % (42-75); PLATELET COUNT 180 10^3/uL (130-400)
[2020-05-15] MEDS: NS IV 1000 ML 1,000 ML IV SCH ×2 (04:43→14:30)
[2020-05-15 04:49] LABS: CHLORIDE 104 MMOL/L (98-107); SODIUM 135 MMOL/L (135-145)
[2020-05-15 04:50] LABS: CALCIUM 8.7 MG/DL (8.5-10.1); GLUCOSE 99 MG/DL (70-105)
[2020-05-15 04:52] LABS: CARBON DIOXIDE 21 MMOL/L (21-32)
[2020-05-15 04:54] LABS: CREATININE SERUM 0.78 MG/DL (0.60-1.30); GFR ESTIMATED > 60; PHOSPHORUS 1.8 MG/DL (2.3-4.7)
[2020-05-15 04:55] LABS: BUN/CREATININE RATIO 14
[2020-05-15 04:57] LABS: MAGNESIUM 1.9 MG/DL (1.6-2.4)
[2020-05-15] MEDS ORDERED: ASPI-1238 PO (06:15)
[2020-05-15] MEDS ORDERED: LISI-729 PO (06:15)
[2020-05-15] MEDS ORDERED: TICA90TA PO (06:15)
[2020-05-15] MEDS ORDERED: ATOR80TA76 PO (06:15)
[2020-05-15] MEDS ORDERED: MTP25TSR PO (06:15)
[2020-05-15] MEDS: ASPIRIN E.C. 81 MG (ECOTRIN) TAB PO SCH (07:56)
[2020-05-15] MEDS: TICAGRELOR 90 MG TABLET (BRILINTA) PO SCH ×2 (07:57→19:20)
[2020-05-15] MEDS: lisINopril 5 MG (PRINIVIL) TABLET PO SCH (07:59)
--- NOTE | 2020-05-15 09:21 | Cardiology Discharge Summary ---
Discharge Summary Hospital Course Problems Reviewed?: Yes Hospital Course Date of Admission: May 13, 2020 at 01:23 Admission Diagnosis : Family Physician/Provider: Date of Discharge: 05/15/20 Discharge Diagnosis: [ST elevation myocardial infarction Coronary artery disease Congestive heart failure, acute left ventricular systolic dysfunction, ischemic in nature Hyperlipidemia] Hospital Course: [ Acute ST elevation myocardial infarction status post emergency cardiac catheterization and stenting to the LAD using Radha 3 x 23 mm, heavy thrombus burden reported by Dr. Rojas. Stunt myocardium with ejection fraction 30 to 35%. Educated in length about compliance with aspirin and Brilinta. Congestive heart failure, acute left ventricular systolic dysfunction, probably secondary to acute myocardial infarction with ischemic cardiomyopathy, anterior wall akinesis, EF 30 to 35%, continue to maximize medical therapy. Increased risk of sudden , planning to place a LifeVest for primary preve ntion and maximize medical therapy. Leukocytosis, unknown etiology, no sign of infection, probably reactive. Asymptomatic. Status post bleeding in the right groin, small hematoma. Resolved, has large bruising. Continue to monitor Hyperlipidemia started on Lipitor 80 mg daily] Labs and Pending Lab Test: Laboratory Tests 05/15/20 03:44: White Blood Count 18.0H, Red Blood Count 4.10L, Hemoglobin 12.7L, Hematocrit 38L , Mean Corpuscular Volume 93, Mean Corpuscular Hemoglobin 31, Mean Corpuscular Hemoglobin Concent 33, Red Cell Distribution Width 13.9, Platelet Count 180, Mean Platelet Volume 12.2, Immature Granulocyte % (Auto) 0, Neutrophils (%) (Auto) 72, Lymphocytes (%) (Auto) 15, Monocytes (%) (Auto) 11, Eosinophils (%) (Auto) 1, Basophils (%) (Auto) 0, Neutrophils # (Auto) 13.0H, Lymphocytes # (Auto) 2.7, Monocytes # (Auto) 2.0H, Eosinophils # (Auto) 0.2, Basophils # (Auto) 0.1, Immature Granulocyte # (Auto) 0.1, Sodium Level 135, Potassium Level 4.0, Chloride Level 104, Carbon Dioxide Level 21, Anion Gap 10, Blood Urea Nitrogen 11, Creatinine 0.78, Estimat Glomerular Filtration Rate > 60, BUN/Creatinine Ratio 14, Glucose Level 99, Calcium Level 8.7, Phosphorus Level 1.8L, Magnesium Level 1.9 Microbiology 05/13/20 MRSA Screen - Final, Complete MRSA not isolated Home Meds Active Aspirin EC (Aspirin) 81 Mg Tablet.dr 81 Mg PO DAILY Lisinopril 5 Mg Tablet 5 Mg PO DAILY Metoprolol Succinate 25 Mg Tab.er.24h 25 Mg PO DAILY Atorvastatin Calcium 80 Mg Tablet 80 Mg PO HS Brilinta (Ticagrelor) 90 Mg Tablet 90 Mg PO BID Reported Ibuprofen 200 Mg Tablet 600 Mg PO Q6H PRN TAKES 3 (200MG) TABLETS Melatonin 5 mg Tablet (Melatonin/Pyridoxine) 1 Each Tablet 1 Each PO HS PRN Latanoprost 0.005% Eye Drop (Latanoprost/Pf) 7.5 Ml Drops 1 Drop OU HS Assessment/Pt DC Instructions Appointment with Dr. Lloyd's office in 1 to 2 weeks Discharge Physical Examination Allergies: Coded Allergies: No Known Drug Allergies (Unverified , 05/13/20) General Appearance: No Apparent Distress, WD/WN HEENT: PERRL/EOMI, TMs Normal, Normal ENT Inspection, Pharynx Normal Respiratory: Chest Non Tender, Lungs Clear, Normal Breath Sounds, No Accessory Muscle Use, No Respiratory Distress Cardiovascular: Regular Rate, Rhythm, No Edema, No Gallop, No JVD, No Murmur, Normal Peripheral Pulses Gastrointestinal: Normal Bowel Sounds, No Organomegaly, No Pulsatile Mass, Non Tender, Soft Extremity: Normal Capillary Refill, Normal Inspection, Normal Range of Motion, Non Tender, No Calf Tenderness, No Pedal Edema Skin: Normal Color, Warm/Dry Neurologic/Psychiatric: Alert, Oriented x3, No Motor/Sensory Deficits, Normal Mood/Affect, employment adjudicator II-XII Norm as Tested Clinical Quality Measures AMI/AHF: ASA po Prior to arrival: MARYAM Carlson MD May 15, 2020 09:21
--- NOTE | 2020-05-15 11:34 | Progress Note - Hospitalist ---
Subjective HPI/CC On Admission Date Seen by Provider: May 15, 2020 Time Seen by Provider: 09:45 Pt is a 55yoCM with no known past medical history presented to the ER due to chest pain. He states he had just finished smoking a cigarette and was waiting for dinner to finish around midnight when he developed sudden onset central ches t pain that radiated to his arm. He states he waited a little hoping it would get better but when he started to get SOB and diaphoretic he decided to seek evaluation. He was found to have a STEMI on arrival and was taken emergently to the crime lab technician where PCI with MISHA was performed to the pLAD. He reports feeling much better this morning and has no residual chest pain. Subjective/Events-last exam He is feeling well. He denies chest pain. He denies shortness of breath. He is ready to go home. Focused Exam Lactate Level 05/14/20 05:48: Lactic Acid Level 1.07 Objective Exam Vital Signs Vital Signs Date Time Temp Pulse Resp B/P (MAP) Pulse Ox O2 Delivery O2 Flow Rate FiO2 05/15/20 11:11 37.1 75 16 100/76 (84) 98 Room Air 05/13/20 05:00 2.00 Capillary Refill : Less Than 3 Seconds General Appearance: No Apparent Distress, WD/WN Respiratory: Lungs Clear, Normal Breath Sounds, No Respiratory Distress Cardiovascular: Regular Rate, Rhythm, No Edema, No Murmur Gastrointestinal: Normal Bowel Sounds, Non Tender, Soft Extremity: Normal Inspection, Non Tender, No Pedal Edema Neurologic/Psychiatric: Alert, Oriented x3, No Motor/Sensory Deficits, Normal Mood/Affect Skin: Normal Color, Warm/Dry Results/Procedures Lab Laboratory Tests 05/15/20 03:44 Patient resulted labs reviewed. Imaging: Reviewed Imaging Report Assessment/Plan Assessment and Plan Assess & Plan/Chief Complaint STEMI Ischemic cardiomyopathy PCI to proximal LAD Management per primary ASA and Brilinta Continue statin Echo showed EF 30-35% Awaiting LifeVest Leukocytosis No evidence of infection, no fever Trending down Likely reactive Tobacco abuse Recommend cessation and risks of further heart disease if he continues, expresses understanding Patient reports plan to quit cold turkey Encouraged follow up with PCP if he needs further help Diagnosis/Problems Diagnosis/Problems (1) STEMI (ST elevation myocardial infarction) Status: Acute Qualifiers: Involved coronary artery: unspecified coronary artery Qualified Codes: I21.3 - ST elevation (STEMI) myocardial infarction of unspecified site (2) Ischemic cardiomyopathy Status: Acute (3) HLD (hyperlipidemia) Status: Acute (4) Leukocytosis Status: Acute (5) Tobacco abuse Status: Chronic Clinical Quality Measures AMI/AHF: ASA po Prior to arrival: NESHA Felix MD May 15, 2020 11:34
== END 2020-05-15 19:25 | disposition home or self-care (01) | DRG 246 ==
LOC: EDUNIT# 00:48 → ER 00:51 → SDC 01:07 → ICU 01:23 → CSD 05-14 20:42
PROVIDERS: ADMIT Family Medicine; ATTEND Internal Medicine Interventional Cardiology
PROC: 027034Z Dilation of Coronary Artery, One Artery with Drug-eluting Intraluminal Device, Percutaneous Approach (ICD-10-PCS; principal; 2020-05-13)
PROC: 4A023N7 Measurement of Cardiac Sampling and Pressure, Left Heart, Percutaneous Approach (ICD-10-PCS; 2020-05-13)
PROC: B2111ZZ Fluoroscopy of Multiple Coronary Arteries using Low Osmolar Contrast (ICD-10-PCS; 2020-05-13)
PROC: B2151ZZ Fluoroscopy of Left Heart using Low Osmolar Contrast (ICD-10-PCS; 2020-05-13)
DX: I21.09 ST elevation (STEMI) myocardial infarction involving other coronary artery of anterior wall (principal); I50.21 Acute systolic (congestive) heart failure; L76.32 Postprocedural hematoma of skin and subcutaneous tissue following other procedure; I25.10 Atherosclerotic heart disease of native coronary artery without angina pectoris; I25.5 Ischemic cardiomyopathy; F17.210 Nicotine dependence, cigarettes, uncomplicated; D72.829 Elevated white blood cell count, unspecified; E78.5 Hyperlipidemia, unspecified; Z20.822 Contact with and (suspected) exposure to COVID-19
CPT/HCPCS: 36415; 71045; 80048; 80053; 80061; 81000; 83605; 83735; 83874; 84100; 84145; 84484; 85007; 85025; 85027; 85610; 85730; 87040; 87081; 87088; 87635; 93005; 93306; 93458

== ENCOUNTER → 2020-07-17 | Outpatient (CLI) | payer OTHER ==
[~2020-07-17] MED LIST: ASPI-1238 PO; ATOR80TA76 PO; IBUP-2473 PO; LATA7.5D OU; LISI-729 PO; MELA1TAB15 PO; MTP25TSR PO; TICA90TA PO
== END ==
LOC: CARD 13:30
PROVIDERS: ATTEND Physician Assistant
DX: I11.9 Hypertensive heart disease without heart failure (principal); I34.0 Nonrheumatic mitral (valve) insufficiency
CPT/HCPCS: 93306

== ENCOUNTER → 2020-08-31 | Outpatient (CLI) | payer OTHER ==
[~2020-08-31] MED LIST changes: +CATHETER FLUSH 10 ML SYR IV PRN
== END ==
LOC: CARD 14:00
PROVIDERS: ATTEND Internal Medicine Cardiovascular Disease
DX: I25.5 Ischemic cardiomyopathy (principal)
CPT/HCPCS: 78472; A9560

== ENCOUNTER → 2020-11-30 | Outpatient (CLI) | payer OTHER ==
[~2020-11-30] MED LIST changes: -CATHETER FLUSH 10 ML SYR IV PRN
== END ==
LOC: CARD 14:17
PROVIDERS: ATTEND Physician Assistant
DX: I34.0 Nonrheumatic mitral (valve) insufficiency (principal); I11.9 Hypertensive heart disease without heart failure
CPT/HCPCS: 93306

== ENCOUNTER → 2021-10-18 | Outpatient (CLI) | payer OTHER ==
[~2021-10-18] MED LIST changes: -LISI-729 PO; +LISI5TAB20 PO
== END ==
LOC: CARD 09:30
PROVIDERS: ATTEND Internal Medicine Cardiovascular Disease
DX: I34.0 Nonrheumatic mitral (valve) insufficiency (principal); I10 Essential (primary) hypertension
CPT/HCPCS: 93306

== ENCOUNTER → 2021-11-11 | Outpatient (CLI) | payer OTHER ==
[~2021-11-11] MED LIST changes: +CATHETER FLUSH 10 ML SYR IVP PRN; +REGADENOSON 0.4 MG/5 ML SYR (LEXISCAN) IV ONE
[2021-11-11 09:22] VITALS: BP 122/64
--- NOTE | 2021-11-11 12:01 | Cardiology Stress Test Report ---
Stress Test Report Date of Procedure/Referring: Date of Procedure: Nov 11, 2021 PCP Hayden Girard DO Admitting Physician Admitting Physician: Attending Physician: Fareed Deleon MD Indications: CAD Baseline Heart Rate: 53 Baseline Blood Pressure: Blood Pressure Systolic: 122 Blood Pressure Diastolic: 64 Baseline Vitals Vital Signs Date Time Temp Pulse Resp B/P (MAP) Pulse Ox O2 Delivery O2 Flow Rate FiO2 11/11/21 09:22 78 122/64 (83) Baseline EKG: Baseline EKG: RBBB Summary After explaining the procedure to the patient, he signed a consent and then brought to the stress nuclear laboratory. Patient received 0.4 mg Lexiscan for stress test, ECG, heart rate and blood pressure were monitored continuously. Resting and stress dose of radio tracer were injected, imaging was acquired and reviewed in short axis, horizontal long axis and vertical long axis views. TID: 1.08 SSS: 27 SDS: 6 EF: 38 1. Patient was unable to exercise beyond 7 minutes and 45 seconds, did not achieve his target heart rate and test was converted to Lexiscan Myoview stress test 2. Patient tolerated Lexiscan well 3. Baseline right bundle branch block persisted during test with no ischemic EKG changes 4. Total infarction of the mid to apical anterior wall and apex with small area of bren-infarct ischemia at the base of the anterior wall 5. Prominent left ventricle with akinesia of the apex hypokinesia of the anterior wall, ejection fraction 38% Copy Copies To 1: HAYDEN GIRARD BASHAR J MD Nov 11, 2021 12:01
== END ==
LOC: CARD 07:30
PROVIDERS: ATTEND Internal Medicine Cardiovascular Disease
DX: I25.10 Atherosclerotic heart disease of native coronary artery without angina pectoris (principal); I10 Essential (primary) hypertension
CPT/HCPCS: 78452; 93017; A9502

== ENCOUNTER → 2022-05-30 | Outpatient (CLI) | payer OTHER ==
[~2022-05-30] MED LIST changes: -CATHETER FLUSH 10 ML SYR IVP PRN; -REGADENOSON 0.4 MG/5 ML SYR (LEXISCAN) IV ONE
== END ==
LOC: CARD 08:29
PROVIDERS: ATTEND Physician Assistant
DX: I34.0 Nonrheumatic mitral (valve) insufficiency (principal); I10 Essential (primary) hypertension; I25.10 Atherosclerotic heart disease of native coronary artery without angina pectoris
CPT/HCPCS: 93306

== ENCOUNTER 2022-08-23 12:49 | Emergency (ER) | payer OTHER ==
[2022-08-23 12:49] VITALS: BP 0/0
[2022-08-23] MEDS ORDERED: SODIUM BICARB 8.4% 50 MEQ/50 ML (ABBOTT) SYR INJ ONE (12:52)
[2022-08-23] MEDS ORDERED: EPINEPHrine 0.1 MG/ML 10 ML (HOSPIRA) SYR IJ ONE (12:52)
[2022-08-23] MEDS ORDERED: NS IV 1000 ML 1,000 ML IV ONE (12:52)
--- NOTE | 2022-08-23 13:25 | ED CPR ---
HPI-CPR General Chief Complaint: Code Blue Stated Complaint: UNRESPONSIVE Source of Information: Family (mother) Exam Limitations: No Limitations History of Present Illness Date Seen by Provider: Aug 23, 2022 Time Seen by Provider: 12:40 Initial Comments Patient presents to the emergency department private vehicle. History from mom as patient is unable to provide due to cardiac arrest/. Patient apparently called his mother around 12:03 PM this afternoon, after playing with his dog in the yard - told her that he was having some chest discomfort. She tells me that he was driving to the hospital at that time. She presented later around 1230/1235 and came into the emergency room looking for her son. When she was told he was not patient in the emergency department she walked out to the parking lot and noticed his car parked. She found him slumped over the steering wheel unresponsive in the car. She then walked back into the emergency room and notified ER staff who brought a cart out to the parking lot and found the patient unresponsive/not breathing. Patient was brought into the emergency department room 7 with chest compressions in progress. I established patient was not preathing and no pulse. Pupils fixed at 4-5mm. Cyanotic. Quickly placed on the monitor IO established, and assisted ventilation via [id number]. P atient started on ACLS protocol with IV epinephrine, multiple doses. Intubated by me. He also received Narcan, bicarb and IV fluids. Blood sugar assessed (adequate). Patient was noted to be in ventricular fibrillation on multiple pulse checks. He was defibrillated 4 times. After continuous CPR and no ROSC achieved, CPR was discontinued at 1302 and patient was pronounced . Mother present in the ER and this provider informed her of the . Emotional support provided. Initial Complaints: Chest Pain Witnessed Arrest: No Down-Time Before ACLS: unknown Paramedics Initial Findings: No Pulse, No Respirations Pre Hospital Treatment: Bag Valve Mask, Defibrillation, Intubation, Oxygen, IV Fluids, Epinephrine (mg), Sodium Bicarb (amps) Allergies and Home Medications Allergies Coded Allergies: No Known Drug Allergies (Unverified , 05/13/20) Patient Home Medication List Home Medication List Reviewed: Yes Aspirin (Aspirin EC) 81 Mg Tablet., 81 MG PO DAILY Prescribed by: MARYAM JULES on 05/15/20 0615 Atorvastatin Calcium (Atorvastatin Calcium) 80 Mg Tablet, 80 MG PO HS Prescribed by: MARYAM JULES on 05/15/20614 Latanoprost/Pf (Latanoprost 0.005% Eye Drop) 7.5 Ml Drops, 1 DROP OU HS, (Reported) Entered as Reported by: MANJU GARZA on 05/14/20 131 Lisinopril (Lisinopril) 5 Mg Tablet, 5 MG PO DAILY Prescribed by: MARYAM JULES on 05/15/20614 Melatonin/Pyridoxine (Melatonin 5 mg Tablet) 1 Each Tablet, 1 EACH PO HS PRN for SLEEP, (Reported) Entered as Reported by: MANJU GARZA on 05/14/201315 Metoprolol Succinate (Metoprolol Succinate) 25 Mg Tab.er.24h, 25 MG PO DAILY Prescribed by: MARYAM JULES on 05/15/20614 Ticagrelor (Brilinta) 90 Mg Tablet, 90 MG PO BID Prescribed by: MARYAM JULES on 05/15/20614 Review of Systems Review of Systems Constitutional: see HPI Other Comments unable to obtain due to cardiac arrest Past [id number] Hx Past Medical History Surgeries: Yes (TEETH REMOVAL) Respiratory: No Cardiac: No Neurological: No Genitourinary: No Gastrointestinal: No Musculoskeletal: No Endocrine: No HEENT: No Cancer: No Psychosocial: No Integumentary: No Blood Disorders: No Physical Exam Vital Signs Vital Signs - First Documented 08/23/22 12:49 Pulse 0 Resp 0 B/P (MAP) 0/0 (0) Capillary Refill : Height, Weight, BMI Height: '" Weight: lbs. oz. kg; 22.61 BMI Method: General Appearance: Other (cyanotic/unresponsive) HEENT: Other (pupils fixed 4-5mm bilaterally; edentulous) Respiratory: Other (bilateral BS via BVM) Cardiovascular: Other (no palpable pulse) Gastrointestinal: Soft Extremity: Other (no obvious deformities) Neurologic/Psychiatric: Other (unresponsive) Skin: Cyanosis Procedures/Interventions Date of ETT Placement: Aug 23, 2022 Time of ETT Placement: 12:45 Intubation Method: orotracheal Tube Size: 7 Positive End Tide CO2: Yes Breath Sounds after Intubation: bilateral-equal Intubation Complications: no complications Post Intubation Xray: No Progress/Results/Core Measures Results/Orders Vital Signs/I&O 08/23/22 12:49 Pulse 0 Resp 0 B/P (MAP) 0/0 (0) Progress Progress Note : Time: 14:10 Progress Note I called the [facility], Dr Harper @[phone] who asked me to contact his PCP (Dr Girard) for the certificate. I spoke with Dr Girard and he declined as he remembered the patient had not been seen by him in a year. Dr Harper then re-contacted. He has released the body. Critical Care Note Critical Care Start Time: 12:40 Stop Time: 13:02 Total Time (minutes) 18 Minutes of critical care time due to ongoing CPR and multiple rounds of medications. Time does not incllude that spent in procedure (intubation) Departure Impression Primary Impression: Cardiac arrest Disposition: 20 Condition: Departure-Patient Inst. Referrals: MACIEL GIRARD DO (PCP) Primary Care Physician Copy Copies To 1: MACIEL GIRARD DO Copies To 2: MARYAM JULES MD, KATHRYN M MD Aug 23, 2022 13:25
== END 2022-08-23 20:30 | disposition expired ==
LOC: EDUNIT# 12:49 → ER 12:51
DX: I46.9 Cardiac arrest, cause unspecified (principal)
CPT/HCPCS: 99291